=== PATIENT | female | born 1985 | race Caucasian/White ===

== ENCOUNTER 2020-11-15 09:46 | Emergency (ER) | payer BC, SELFPAY ==
[2020-11-15 10:02] VITALS: BP 105/72; PULSE 76; RESP 18; TEMP 36.6; O2SAT 100; BMI 32.0
[2020-11-15 11:12] VITALS: BP 121/72; PULSE 63; RESP 20; O2SAT 100
--- NOTE | 2020-11-15 11:14 | USCV_ITS ---
Amirah Maldonado Age: 35 Gender: F : 1985 Exam Date: 11/15/2020 11:41 Ordering Phys: Divine Khan Technologist: Crystal Wall Exam Location: [facility] – [place] Indication: Pain HISTORY: Lower extremity pain. PROCEDURES: Venous duplex imaging was performed in only the left lower extremity. The following venous structures were evaluated: common femoral vein, profunda vein, proximal portion of the greater saphenous vein, superficial femoral vein, and the popliteal vein. In addition, the posterior tibial and peroneal trunk were evaluated. FINDINGS: Normal 2-D Doppler and augmentation and compressibility throughout the lower extremity venous structures. Additional imaging through the proximal calf veins also reveals no thrombus. Limited evaluation of the greater saphenous vein is patent with no thrombus. CONCLUSIONS No DVT left lower extremity. Dr. Alejandra Perez DO (Electronically Signed) Final Date: 15 November 2020 16:08 S
--- NOTE | 2020-11-15 11:24 | ED_ITS ---
HPI - Extremity Problem General: Chief complaint: Extremity Problem,Nontraumatic Stated complaint: Bruising in L leg w/ clotting disorder Time Seen by Provider: 11/15/20 09:52 Source: patient Mode of arrival: ambulatory Limitations: no limitations History of Present Illness: HPI Narrative: Patient is a 35-year-old female who presents to ED today with a concern for a possible DVT to her left lower extremity. Patient tells me she did recently have a long car ride of over 10 hours. She tells me she has a blood clotting disorder but cannot tell me the specific name. She states in 2019 she was diagnosed with pulmonary emboli and was on warfarin however she recently learned she is so they have switched her to Lovenox. Patient tells me on Sunday she began noticing an area of ecchymosis to her left calf and is concerned this could be a DVT. Patient does tell me she feels a little short of breath. MD Complaint: extremity pain Onset (ago): day(s) Pain Consistency: constant Location: left and lower extremity Radiation: none Relieving factors: nothing Exacerbating factors: weight bearing Associated symptoms: Reports short of breath; Deny chest pain or fever(s) Review of Systems Const: Denies: fever(s), chills, body aches, change in appetite, change in weight, fatigue or malaise Eyes: Denies: change in vision ENMT: Denies: nasal discharge or nasal congestion Card: Reports: dyspnea on exertion; Denies: chest pain, palpitations, irregular heart rhythm, edema, swelling of feet/ankles, lightheadedness, syncope or pre-syncope Resp: Reports: dyspnea; Denies: productive cough, non-productive cough, hemoptysis or chest congestion GI: Denies: abdominal pain, nausea, vomiting or diarrhea Musc: Reports: extremity pain (L calf); Denies: neck pain or back pain Neuro: Denies: numbness in extremities, sensory changes or difficulty walking Physical Exam Const: COMMON NORMALS: no acute distress, average body habitus, patient oriented x3, no limitations, healthy appearing, alert and well nourished GENERAL APPEARANCE: cooperative ORIENTATION/CONSCIOUSNESS: Yes awake, Yes oriented to person, Yes oriented to place and Yes oriented to time Resp: COMMON NORMALS: normal respiratory effort and clear to auscultation bilaterally AUSCULTATION: clear to auscultation bilaterally Cardio: COMMON NORMALS: regular rate and regular rhythm RATE: regular rate RHYTHM: regular rhythm Extremity: GENERAL: Yes normal exam except as noted OTHER: 2 inch area of ecchymosis to medial L calf with palpable cord most likely a superficial phlebitis; no increase in calf circumference; no redness/warmth noted Neuro: COMMON NORMALS: patient oriented x3 SENSORIUM/ORIENTATION: Yes alert, Yes oriented to person, Yes oriented to place and Yes oriented to time Course Vital Signs: Vital signs: Vital Signs Temperature 97.9 F 11/15/20 10:02 Pulse Rate 63 11/15/20 11:12 Respiratory Rate 20 H 11/15/20 11:12 Blood Pressure 121/72 11/15/20 11:12 Pulse Oximetry 100 11/15/20 11:12 MDM - Extremity (Nontraumatic) MDM Narrative: Medical decision making narrative: Patient does not have a DVT. Her vitals are stable-she is not tachycardic or hypoxic. She does complain of some very mild SOB. Spoke with her extensively about doing a CTA but I am concerned regarding the amount of radiation and her . She is already on Lovenox BID and taking regularly. I have a low suspicion clinically (Wells Score also would be low suspicion) but even if we performed one and found a PE the treatment would ultimately be to stay on her Lovenox. Her EKG shows no right heart strain. D-dimer not ordered as we know this most likely be elevated and would not be beneficial. Spoke with Dr. Padilla who agrees with evaluation and plan for patient. Recommend she follow up with PCP/OB when she returns home. Lab Data: Labs: Lab Results 11/15/20 11/15/20 11/15/20 Range/Units 11:10 11:10 11:10 WBC 6.6 (4.0-10.0) 10^3/ uL RBC 3.96 L (4.1-5.3) 10^6/u L Hgb 11.6 (11.5-15.3) g/dL Hct 36.0 L (37.0-47.0) % MCV 90.9 (81-99) fL MCH 29.3 (28.0-34.0) pg MCHC 32.2 (30.0-36.0) g/dL RDW 12.8 (12.1-15.1) % Plt Count 197 (130-400) 10^3/c mm MPV 11.0 H (7.4-10.4) fL Neut % (Auto) 64.3 % Lymph % (Auto) 24.3 % [place] % (Auto) 8.2 % Eos % (Auto) 2.1 % Baso % (Auto) 0.5 % Neut # (Auto) 4.24 (1.8-7.7) 10^3/u L Lymph # (Auto) 1.6 (0.8-4.8) 10^3/u L [place] # (Auto) 0.5 (0.2-0.9) 10^3/u L Eos # (Auto) 0.1 (0.0-0.8) 10^3/u L Baso # (Auto) 0.0 (0.0-0.1) 10^3/u L Nucleated RBC % (a uto) 0 % Nucleated RBCs # 0.0 /100WBC PT 13.80 (12.1-14.9) SECO NDS INR 1.03 (0.8-1.2) APTT 60.3 H (23.9-36.7) SECO NDS Sodium 137 (136-145) mmol/L Potassium 4.0 (3.5-5.1) mmol/L Chloride 101 (98-107) mmol/L Carbon Dioxide 28 (22-29) mmol/L Anion Gap 12.0 (5-19) BUN 10 (6-20) mg/dL Creatinine 0.6 (0.5-0.9) mg/dL GFR Calculation 113.8 (90-130) mL/min Glucose 80 (65-115) mg/dL Calculated Osmolal ity 282 L (285-295) mOsm/k g Calcium 8.8 (8.5-10.5) mg/dL Total Bilirubin 0.5 (0.15-1.2) mg/dL AST 20 (0-32) U/L ALT 26 (0-33) U/L Alkaline Phosphata se 48 (35-105) IU/L Total Protein 6.0 L (6.6-8.7) g/dL Albumin 4.0 (3.5-5.2) g/dL Globulin 2.0 (1.3-4.6) g/dL Imaging Data^: L LE venous US: My impression: Per Esperanza Wall US tech-no DVT noted EKG Data^: EKG 1: EKG interpretation date: 11/15/20 EKG interpretation time: 12:03 Interpretation: Sinus bradycardia with sinus arrhythmia Rate [address] elevation or depression changes noted Discharge Plan Discharge Patient Disposition: Home Clinical Impression: Phlebitis of leg, left, superficial Condition: Stable Discharge Orders: Discharge ED (Routine); Ordered 11/15/20 Ordered By: Divine Khan Patient Instructions: Superficial Thrombophlebitis (ED) Activity Restrictions/Additional Instructions: As we discussed you need to return to the emergency department for any severe chest pain, shortness of breath, difficulty breathing, or any other concerns you may have. Please follow-up with your primary care provider or OB provider when you return home. Coding Level of Care Code ED Drop Forger for Chg Fwd Exam Expanded Problem Focused
--- NOTE | 2020-11-15 11:55 | ECG_ITS ---
[facility] Test Date: 2020-11-15 Pat Name: Amirah Maldonado Department: Room: Gender: Female Supervisor Special Education: : 1985 Requested By: Divine Khan Order Number: [id number] Milo MD: Jose F Meza M.D. Measurements Intervals [place] Rate: 56 P: 40 SC: 140 QRS: 76 QRSD: 91 T: 34 QT: 408 QTc: 394 Interpretive Statements SINUS BRADYCARDIA WITH SINUS ARRHYTHMIA No previous ECG available for comparison Electronically Signed On 11-15-2020 19:03:04 CDT by Jose F Meza M.D. [email or web address]
[2020-11-15 12:06] LABS: Basophils % 0.5 %; Eosinophils # 0.1 10^3/uL (0.0-0.8); Eosinophils % 2.1 %; Hemoglobin 11.6 g/dL (11.5-15.3); Lymphocytes # 1.6 10^3/uL (0.8-4.8); Lymphocytes % 24.3 %; Mean Corpuscular HGB Conc 32.2 g/dL (30.0-36.0); Mean Corpuscular Hemoglobin 29.3 pg (28.0-34.0); Mean Corpuscular Volume 90.9 fL (81-99); Monocytes # 0.5 10^3/uL (0.2-0.9); Monocytes % 8.2 %; Neutrophils # 4.24 10^3/uL (1.8-7.7); Neutrophils % 64.3 %; Nucleated Red Blood Cells % 0 %; Platelet Count 197 10^3/cmm (130-400); Red Blood Count 3.96 10^6/uL (4.1-5.3); Red Cell Distribution Width 12.8 % (12.1-15.1); White Blood Count 6.6 10^3/uL (4.0-10.0)
[2020-11-15 12:22] LABS: INR 1.03 (0.8-1.2)
[2020-11-15 12:24] LABS: Partial Thromboplastin Time 60.3 SECONDS (23.9-36.7)
[2020-11-15 12:30] LABS: Alanine Aminotransferase 26 U/L (0-33); Alkaline Phosphatase 48 IU/L (35-105); Aspartate Amino Transferase 20 U/L (0-32); Blood Urea Nitrogen 10 mg/dL (6-20); Calcium 8.8 mg/dL (8.5-10.5); Carbon Dioxide 28 mmol/L (22-29); Chloride 101 mmol/L (98-107); Glomerular Filtration Rate 113.8 mL/min (90-130); Glucose 80 mg/dL (65-115); Osmolality Calculated 282 mOsm/kg (285-295); Sodium 137 mmol/L (136-145); Total Bilirubin 0.5 mg/dL (0.15-1.2)
== END 2020-11-15 13:10 | disposition home or self-care (01) ==
PROVIDERS: Emergency Provider Physician Assistant
DX: O22.20 Superficial thrombophlebitis in pregnancy, unspecified trimester (principal); Z3A.00 Weeks of gestation of pregnancy not specified
CPT/HCPCS: 80053; 85025; 85610; 85730; 93005; 93971; 99283